=== PATIENT | female | born 1965 | race Two or more races ===

== ENCOUNTER 2019-10-11 09:25 | Outpatient (CLI) | payer OTHER | END 2019-10-11 10:12 | disposition home or self-care (01) | LOC: TOM 09:25 | DX: R22.1 Localized swelling, mass and lump, neck (principal) ==

== ENCOUNTER 2020-04-10 13:37 | Outpatient (CLI) | payer OTHER | END 2020-04-10 13:39 | disposition home or self-care (01) | LOC: TOM 13:37 | PROVIDERS: ATTEND Orthopaedic Surgery | DX: D17.79 Benign lipomatous neoplasm of other sites (principal) ==